=== PATIENT | male | born 1995 | race Caucasian/White ===

== ENCOUNTER 2024-11-04 23:10 | Emergency (ER) | payer SELFPAY ==
--- OUTSIDE RECORDS SUMMARY | 2016-04-01 09:34 | XMS_ITS | Continuity of Care Document ---
Author Organization [facility] Address [address] [facility] [place] [address] Phone Care Team Providers Care Furrier Designer Name Role Phone Michael IVANIA James Unavailable Unavailable Advance Directives Directive Yes / No Effective Date File Name No Information Encounters Encounter Description Practice Location Reason(s) For Visit Diagnoses Date Provider Providers Copied on Encounter [facility] , [address], [place], [id number], [place] tel:[phone] ROGE Baugh No Information Michael James. [address], [place], [id number], [place]. tel:[phone] Family History Family Member Type Diagnosis Age At Onset No Information Payers Payer name Insurance type Covered republican ID Authoriza tion(s) BCBS Comm PPO [id number] Social History Type Description Quantity Date Captured Comments Sex Male Smoking Status No Information Chief Complaint And Reason For Visit No Information Reason For Referral Reason For Referral No Information History Of Present Illness Encounter Date Complaint History Of Prese nt Illness No Information Functional Status Date Functional Assessmen t No Information Instructions Date Instruction Additional Infor mation No Information Assessments Type Assessment Date No Information Patient Care Teams Name Effective Dates (start - stop) Status Members No Information
[2024-11-04 23:14] VITALS: BP 131/85; PULSE 79; RESP 20; TEMP 36.8; O2SAT 99; BMI 27.1
[2024-11-04 23:23] VITALS: BP 130/73; PULSE 81; RESP 18; O2SAT 99
--- NOTE | 2024-11-04 23:32 | XRR_ITS ---
PROCEDURE INFORMATION: Exam: XR Left Shoulder Exam date and time: 11/04/2024 11:34 PM Age: 29 years old Clinical indication: Injury or trauma; Fall; Blunt trauma (contusions or hematomas); Shoulder; Left; Additional info: Dislocation TECHNIQUE: Imaging protocol: Radiologic exam of the left shoulder. Views: 2 or more views. COMPARISON: No relevant prior studies available. FINDINGS: Bones/joints: Anteroinferior glenohumeral dislocation. No acute fracture identified. Remaining bones appear intact and normally aligned. Soft tissues: Normal. XR/XR shoulder LT min 2V* [id number] IMPRESSION: Anteroinferior glenohumeral dislocation. No acute fracture identified.
--- NOTE | 2024-11-04 23:42 | W.ED.EXTPRO ---
Documented by User: TATO Lyons 11/05/24 01:31 HPI - Extremity Problem General: Chief complaint: Extremity Injury, Upper Stated complaint: L shoulder dislocated 1 hour ago Time Seen by Provider: 11/04/24 23:32 Source: patient Mode of arrival: ambulatory Limitations: no limitations History of Present Illness: 29yo male presents to the ER for pain and difficulty moving the left shoulder. Patient reports that approximately 2200 he fell in a ditch while camping. He did attempt to catch himself with his left arm. States the pain is 10/10. Reports he is right-hand dominant. States this is never happened before. Reports that he did have a burrito approximately 2 hours ago. He denies any other concerns at this time. Associated symptoms: Deny chest pain or fever(s) Related Data Previous Rx's ?Medication ?Instructions ?Recorded hydrocodone 5 mg-acetaminophen 325 1 tab PO Q8H PRN pain #12 tabs 11/05/24 mg tablet ketorolac 10 mg tablet 10 mg PO Q6H PRN pain 5 days #20 11/05/24 tabs Allergies Allergy/AdvReac Type Severity Reaction Status Date / Time No Known Allergies Allergy Verified 11/04/24 23:18 Review of Systems Const: Denies: fever(s), chills or body aches Card: Denies: chest pain Resp: Denies: dyspnea GI: Denies: vomiting Musc: Reports: extremity pain (Left shoulder) and limited range of motion (Left shoulder); Denies: back pain Physical Exam Const: COMMON NORMALS: no acute distress, patient oriented x3 and alert GENERAL APPEARANCE: cooperative ORIENTATION/CONSCIOUSNESS: Yes awake OTHER: Patient is sitting reclined on the stretcher, appears to be in pain but in no acute distress. He is able to give history with no difficulty. He is interactive with exam appropriately. Family is at bedside HENMT: COMMON NORMALS: normocephalic and atraumatic HEAD & SCALP: normocephalic and atraumatic Chest: CHEST: Yes Symmetrical chest wall rise Resp: COMMON NORMALS: normal respiratory effort EFFORT & INSPECTION: Yes able to speak in complete sentences Cardio: COMMON NORMALS: regular rate RATE: regular rate Extremity: LEFT UPPER EXTREMITY: Yes shoulder joint Left shoulder joint: Yes inspection (Deformity) and Yes ROM (Minimal) OTHER: Pulse, motor, and sensation are intact of the left wrist and digits. Neuro: COMMON NORMALS: patient oriented x3 SENSORIUM/ORIENTATION: Yes alert Procedures Orthopedic Joint Reduction Joint #1: Time Out Performed: Yes Side: left Joint Reduction Location: shoulder Analgesia: procedural sedation Shoulder Technique Used (if applicable): scapula manipulation and external rotation Post-reduction neuro exam: intact Post-reduction vascular: intact Post Reduction X-Ray Obtained: Yes Post Reduction X-Ray Results: reduced Splint Applied: Yes (sling) Patient Tolerated Procedure: well Course Vital Signs: Vital signs: Vital Signs Temperature 98.7 F 11/05/24 00:38 Pulse Rate 71 11/05/24 01:44 Respiratory Rate 18 11/05/24 01:44 Blood Pressure 118/84 11/05/24 01:44 Pulse Oximetry 100 11/05/24 01:44 Oxygen Delivery Me thod Nasal Cannula 11/05/24 00:38 Oxygen Flow Rate 2 11/05/24 00:38 MDM - Extremity (Nontraumatic) Medical Decision Making 29yo male presents to the ER for pain and difficulty moving the left shoulder. Patient reports that approximately 2200 he fell in a ditch while camping. He did attempt to catch himself with his left arm. States the pain is 10/10. Reports he is right-hand dominant. States this is never happened before. Reports that he did have a burrito approximately 2 hours ago. He denies any other concerns at this time. Patient is nontoxic in appearance. Vital signs are stable. X-ray reveals an anterior dislocation of the left shoulder, no fracture noted. Will proceed with reduction. Reduction completed with moderate sedation. Patient tolerated the procedure well. Successful reduction confirmed with x-ray. Sling was applied. Patient is from [place] and will be traveling back home next week. Encourage patient to follow-up with orthopedics as soon as possible once he is back home. Discussed with patient that the ligaments need to heal and his shoulder at this time will be easily redislocated. Return precautions provided. Patient and family state understanding and have no further questions or concerns at this time. Lab Data Radiology Impressions Shoulder X-Ray 11/05/24 00:19 IMPRESSION: 1. Status post interval glenohumeral joint reduction to anatomic alignment. 2. No acute fracture seen on this single internally rotated view. XR interpretation done by ED provider, pending radiology final review ED provider radiology interpretation(s): Initial left shoulder x-ray finalized by radiologist Postreduction x-ray pending radiology review, successful reduction Discharge Plan Discharge Patient Disposition: Home Clinical Impression: Anterior dislocation of left shoulder Qualifiers: Encounter type: initial encounter Qualified Code(s): S43.015A - Anterior dislocation of left humerus, initial encounter Condition: Stable Prescriptions: New ketorolac 10 mg tablet 10 mg PO Q6H PRN (Reason: pain) 5 Days Qty: 20 0RF hydrocodone-acetaminophen 5-325 mg tablet 1 tab PO Q8H PRN (Reason: pain) Qty: 12 0RF Discharge Orders: Discharge ED (Routine); Ordered 11/05/24 Ordered By: Gil Arzola Discharge Diet: Usual diet Discharge Activity: Limit activity as instructed Patient Instructions: Shoulder Dislocation (ED), Opioid Safety, Pain Management, Patient Portal & Demetris Instructions Activity Restrictions/Additional Instructions: Your shoulder was put back in socket in the emergency department today. There were no fractures noted on the x-rays. Please keep your arm in the sling to help prevent repeat dislocation Short course of ketorolac has been sent to the pharmacy to help with inflammation. Short course of hydrocodone has been sent to the pharmacy for moderate or severe pain. Please do not drive or operate heavy machinery while taking hydrocodone. Apply ice to the shoulder for the next several days to help with the swelling. Apply ice for 15 to 20 minutes at a time Follow-up with an orthopedist as soon as possible upon returning home to [place] Return to the emergency department if any further injury, worsening symptoms, and as needed Print Language: Djiboutian Coding Level of Care Code ED Supervisor Transcribing Operators for Chg Fwd Documented by User: Darrin Gil DO 11/05/24 02:36 HPI - Extremity Problem General: Chief complaint: Extremity Injury, Upper Stated complaint: L shoulder dislocated 1 hour ago Time Seen by Provider: 11/04/24 23:32 Related Data Previous Rx's ?Medication ?Instructions ?Recorded hydrocodone 5 mg-acetaminophen 325 1 tab PO Q8H PRN pain #12 tabs 11/05/24 mg tablet ketorolac 10 mg tablet 10 mg PO Q6H PRN pain 5 days #20 11/05/24 tabs Allergies Allergy/AdvReac Type Severity Reaction Status Date / Time No Known Allergies Allergy Verified 11/04/24 23:18 Procedures Procedural Sedation Indication: fracture/dislocation reduction ASA Class: I Preparation: monitoring and evaluation advisor applied, pulse oximeter, supplemental O2 applied, suction/airway equipment at bedside and IV secured IV Propofol dose (mg): 170 Patient Tolerated Procedure: well and no complications Complications: none Course Vital Signs: Vital signs: Vital Signs Temperature 98.7 F 11/05/24 00:38 Pulse Rate 71 11/05/24 01:44 Respiratory Rate 18 11/05/24 01:44 Blood Pressure 118/84 11/05/24 01:44 Pulse Oximetry 100 11/05/24 01:44 Oxygen Delivery Me thod Nasal Cannula 11/05/24 00:38 Oxygen Flow Rate 2 11/05/24 00:38 MDM - Extremity (Nontraumatic) Medical Decision Making 29yo male presents to the ER for pain and difficulty moving the left shoulder. Patient reports that approximately 2200 he fell in a ditch while camping. He did attempt to catch himself with his left arm. States the pain is 10/10. Reports he is right-hand dominant. States this is never happened before. Reports that he did have a burrito approximately 2 hours ago. He denies any other concerns at this time. Patient is nontoxic in appearance. Vital signs are stable. X-ray reveals an anterior dislocation of the left shoulder, no fracture noted. Will proceed with reduction. Reduction completed with moderate sedation. Patient tolerated the procedure well. Successful reduction confirmed with x-ray. Sling was applied. Patient is from [place] and will be traveling back home next week. Encourage patient to follow-up with orthopedics as soon as possible once he is back home. Discussed with patient that the ligaments need to heal and his shoulder at this time will be easily redislocated. Return precautions provided. Patient and family state understanding and have no further questions or concerns at this time. Patient was originally seen by TATO Arshad. I agree with her history, evaluation, and management. I was present for conscious sedation for dislocated shoulder reduction. It proceeded without complication. Lab Data Radiology Impressions Shoulder X-Ray 11/05/24 00:19 IMPRESSION: 1. Status post interval glenohumeral joint reduction to anatomic alignment. 2. No acute fracture seen on this single internally rotated view. Discharge Plan Discharge Patient Disposition: Home Clinical Impression: Anterior dislocation of left shoulder Qualifiers: Encounter type: initial encounter Qualified Code(s): S43.015A - Anterior dislocation of left humerus, initial encounter Condition: Stable Prescriptions: New ketorolac 10 mg tablet 10 mg PO Q6H PRN (Reason: pain) 5 Days Qty: 20 0RF hydrocodone-acetaminophen 5-325 mg tablet 1 tab PO Q8H PRN (Reason: pain) Qty: 12 0RF Discharge Orders: Discharge ED (Routine); Ordered 11/05/24 Ordered By: Gil Arzola Discharge Diet: Usual diet Discharge Activity: Limit activity as instructed Patient Instructions: Shoulder Dislocation (ED), Opioid Safety, Pain Management, Patient Portal & Demetris Instructions Activity Restrictions/Additional Instructions: Your shoulder was put back in socket in the emergency department today. There were no fractures noted on the x-rays. Please keep your arm in the sling to help prevent repeat dislocation Short course of ketorolac has been sent to the pharmacy to help with inflammation. Short course of hydrocodone has been sent to the pharmacy for moderate or severe pain. Please do not drive or operate heavy machinery while taking hydrocodone. Apply ice to the shoulder for the next several days to help with the swelling. Apply ice for 15 to 20 minutes at a time Follow-up with an orthopedist as soon as possible upon returning home to [place] Return to the emergency department if any further injury, worsening symptoms, and as needed Print Language: Djiboutian Coding Level of Care Code ED Supervisor Transcribing Operators for Nasreen Israel
[2024-11-04] MEDS: ondansetron 2 mg/ML SDV 2 mL 4 MG IVP (23:57)
[2024-11-04 23:59] VITALS: RESP 22
[2024-11-04] MEDS: fentaNYL 50 mcg/mL INJ 2mL IVP (23:59)
--- NOTE | 2024-11-05 00:19 | XRR_ITS ---
PROCEDURE INFORMATION: Exam: XR Left Shoulder Exam date and time: 11/05/2024 12:21 AM Age: 29 years old Clinical indication: Injury or trauma; Other: Post-reduction; Dislocation; Shoulder; Left; Additional info: Post reduction TECHNIQUE: Imaging protocol: Radiologic exam of the left shoulder. Views: 2 or more views. COMPARISON: CR (CHEST, ) 11/04/2024 11:34 PM FINDINGS: Bones/joints: Status post interval glenohumeral joint reduction to anatomic alignment. No acute fracture seen on this single internally rotated view. Remaining osseous structures appear intact. Soft tissues: Normal. XR/XR shoulder LT 1V [id number] IMPRESSION: 1. Status post interval glenohumeral joint reduction to anatomic alignment. 2. No acute fracture seen on this single internally rotated view.
[2024-11-05 00:28] VITALS: BP 120/73; PULSE 80; RESP 18; O2SAT 100
[2024-11-05] MEDS: propofol 10 mg/mL SDV 20 mL 200 MG IVP (00:29)
[2024-11-05 00:38] VITALS: BP 120/73; BP 129/73; PULSE 80; PULSE 88; RESP 18; TEMP 37.1; O2SAT 100
[2024-11-05 01:35] VITALS: RESP 18
[2024-11-05] MEDS: morphine 4 mg/mL SDV 1 mL IVP (01:35)
[2024-11-05 01:44] VITALS: BP 118/84; PULSE 71; RESP 18; O2SAT 100
== END 2024-11-05 01:46 | disposition home or self-care (01) ==
PROVIDERS: Emergency Provider Nurse Practitioner
DX: S43.015A Anterior dislocation of left humerus, initial encounter (principal); W19.XXXA Unspecified fall, initial encounter
CPT/HCPCS: 23650; 36415; 73020; 73030; 96374; 96375; 99156; 99285; J1885; J2270; J2405; J2704; J3010